=== PATIENT | male | born 1955 | race Caucasian/White ===

== ENCOUNTER 2018-08-25 10:12 | Emergency (ER) | payer BC, SELFPAY ==
[2018-08-25] VITALS (33 sets, daily range): BP systolic 124–175; BP diastolic 72–88; PULSE 62–85; RESP 0–24; TEMP 36.7; O2SAT 82–99
--- NOTE | 2018-08-25 10:17 | NUR.NOTE ---
pt developed nausea, vomiting, and dizziness at approximately 40 min ago
--- NOTE | 2018-08-25 10:34 | DI.CT_ITS ---
SYMPTOMS/DIAGNOSIS: DIZZY, ON COUMADIN NONCONTRAST HEAD CT: There are no prior comparison exams. No intracranial hemorrhage, mass or infarct is seen. The ventricles are normal in size. The orbits are unremarkable. There is mucous retention in the left maxillary sinuses and some mucous thickening of a few ethmoid sinuses as well as in the nasal cavity. IMPRESSION: Sinus disease. No acute intracranial abnormality.
[2018-08-25 10:54] LABS: Abs Immature Grans 0.01 k/cumm (0.0-0.09); Absolute Basophil Count 0.01 k/cumm (0.0-0.2); Absolute Eosinophil Count 0.12 k/cumm (0.0-0.7); Absolute Monocyte Count 0.54 k/cumm (0.11-0.7); Absolute Neutrophil Count 3.56 k/cumm (1.2-6.7); Basophils % 0.2; Eosinophils % 2.1; HCT 42.3 % (40.0-50.0); HGB 13.9 g/dL (13.5-17.5); Immature Grans % 0.2; Lymphocytes % 24.8; Mean Corp. HGB Concentration 32.9 g/dL (32.0-36.0); Mean Corpuscular Hemoglobin 28.3 pg (27.0-33.0); Mean Corpuscular Volume 86.2 fL (80-95); Mean Platelet Volume 9.5 fL (8.0-11.0); Monocytes % 9.6; Neutrophils % 63.1; Platelet Count 310 x1000/uL (130-400); RBC 4.91 m/cumm (4.50-6.00); RBC Distribution Width 14.3 % (11.8-14.1); White Blood Cell Count 5.64 k/cumm (4.4-10.8)
--- NOTE | 2018-08-25 10:54 | W.ED.GENAD ---
Discharge Plan Disposition Patient Disposition: HOME Condition: Good Discharge Details Chief Complaint: Nausea/Vomit/Diar Clinical Impression: Peripheral vertigo Reason For Visit: GIOVANI Primary Care Provider: Shala,Local ED Provider: Favio Becker Home Meds and New Rx's Prescriptions: New meclizine 25 mg tablet 25 mg PO TID Qty: 20 RF: 0 No Action montelukast 10 mg Tablet 10 mg PO QPM RF: 0 atorvastatin [Lipitor] 80 mg Tablet 80 mg PO DAILY RF: 0 warfarin 7.5 mg Tablet 7.5 mg PO DAILY RF: 0 lisinopril 20 mg Tablet 20 mg PO DAILY RF: 0 aspirin [Aspir-81] 81 mg Tablet,Delayed Release (Dr/Ec) 81 mg PO DAILY RF: 0 glyburide-metformin 5-500 mg Tablet 1 tab PO BID RF: 0 amoxicillin-pot clavulanate 875-125 mg Tablet 1 tab PO BID RF: 0 bupropion HCl 300 mg Tablet Extended Release 24 Hr 300 mg PO QAM RF: 0 Mydayis 25 mg Capsule, Er Triphasic 24 Hr 25 mg PO DAILY RF: 0 Discharge Instructions Instructions: Vertigo (ED) Additional Instructions: Please take the meclizine as directed. If you notice any worsening of your symptoms, or any new symptoms such as vomiting, diarrhea, fever, chills, shortness of breath, chest pain, numbness, weakness, or fainting , please return immediately to the emergency department for reevaluation. Please follow up with your primary care provider as soon as possible for reassessment and reevaluation. As always, it was a pleasure participating in your medical care today. Medical Decision Making This is a pleasant 63-year-old male with a past medical history of vertigo, DVTs on Coumadin, and a recent URI for which she is taking Augmentin, who presents for sudden onset dizziness, nystagmus, nausea and vomiting. Patient states that his symptoms are similar to his previous episodes of vertigo. Physical exam demonstrates no focal neurologic deficits, no history of trauma while on the Coumadin, no vertical nystagmus. Hence exam suggest a peripheral etiology. In conjunction with the patient's recent upper respiratory infection I feel that this correlates well with peripheral vertigo most likely from mild labyrinthitis. Because of the patient's history of Coumadin use so we will get a CT scan to acutely rule out any significant bleed which I do feels very unlikely with no neurologic deficits. We will rehydrate, control the patient's nausea and dizziness 2:[address] scan has returned negative for any acute process bleed or stroke. Serial EKGs are benign and consistent with prior EKGs from his outside facilities. Laboratory workup is benign. Serial troponins are stable and within normal limits. Patient's clinical exam is notably improved and he demonstrates a continued normal neurologic exam. Dizziness is resolved and he has been able to tolerate p.o. very well. He continues to demonstrate a nontender normal abdominal exam with no component of surgical concern. I feel his signs and symptoms most likely secondary to peripheral vertigo, and potentially labyrinthitis with his associated upper respiratory infection. I recommend that he continues taking the antibiotic for sinusitis. We discussed red flags which to return, the importance of home meclizine, and the importance of close follow-up. I have extensively reviewed the treatment plan and discharge instructions with the patient. I have addressed all patient concerns at this time. The patient was made aware of what symptoms to monitor for that would warrant a return to the emergency department. Discussed the plan with the patient, they demonstrate verbal understanding and agreement with our assessment and plan at this time. EKG 10: 16 Rate 68, sinus rhythm, intervals normal, 1 mm of J-point elevation in V1 and V2. No ST depressions, no Q waves. No T wave inversions. Findings consistent with prior EKG from outpatient facility on 06/14/18 EKG 14: 22 Rate 65, intervals normal, sinus rhythm, no T wave inversions. Minimal J-point 1 mm elevation in V1 and V2. No Q waves. No change from prior EKG earlier today. Review of previous EKGs from patient's outside medical facility from 06/14/18 demonstrate consistent findings in the anterior leads. Which is consistent with his previous EKGs in the past. No other acute changes. NONCONTRAST HEAD CT: There are no prior comparison exams. No intracranial hemorrhage, mass or infarct is seen. The ventricles are normal in size. The orbits are unremarkable. There is mucous retention in the left maxillary sinuses and some mucous thickening of a few ethmoid sinuses as well as in the nasal cavity. IMPRESSION: Sinus disease. No acute intracranial abnormality. HPI General Date/Time Provider Initiated Documentation: 08/25/18 10:34. 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 Symptoms are made worse with movement of the head, opening his eyes, and looking around. Symptoms are improved by nothing. signs and symptoms are consistent with his previous episodes of vertigo in the past. He denies any headache, chest pain or abdominal pain. Does admit to nausea. He denies any significant vision changes. He denies missing any regular medications aside for the ones he did vomit this morning. He has no other complaints at this time. No other modifying factors. Of note the patient is a relatively poor historian Related Data Home Medications Medication Instructions Recorded Confirmed amoxicillin-pot clavulanate 1 tab PO BID 08/25/18 08/25/18 aspirin [Aspir-81] 81 mg PO DAILY 08/25/18 08/25/18 atorvastatin [Lipitor] 80 mg PO DAILY 08/25/18 08/25/18 bupropion HCl 300 mg PO QAM 08/25/18 08/25/18 dextroamphetamine-amphetamine 25 mg PO DAILY 08/25/18 08/25/18 [Mydayis] glyburide-metformin 1 tab PO BID 08/25/18 08/25/18 lisinopril 20 mg PO DAILY 08/25/18 08/25/18 meclizine 25 mg PO TID #20 tab 08/25/18 montelukast 10 mg PO QPM 08/25/18 08/25/18 warfarin 7.5 mg PO DAILY 08/25/18 08/25/18 Previous Rx's Medication Instructions Recorded meclizine 25 mg PO TID #20 tab 08/25/18 Allergies Allergy/AdvReac Type Severity Reaction Status Date / Time shellfish derived Allergy Mild Unverified 08/25/18 10:20 General Stated Complaint: Nausea/Vomit/Diar BRITNEY: 3 Review of Systems Review of Systems All systems reviewed & are unremarkable except as noted in HPI and below Exam Narrative Exam Narrative: 1.Const: Well-nourished, Well-developed, appearing stated age 2.Eyes: PERRL, no conjunctival injection, and symmetrical lids. 3.ENT: Atraumatic external nose and ears. Moist MM. Neck: Symmetric, trachea midline, No thyromegaly. 4.CVS: +S1/S2, notable grade 2 murmur auscultated loudest at the third left intercostal space. Peripheral pulses 2+ and equal in all extremities. Brisk capillary refill in all extremities. 5.RESP: Unlabored respiratory effort. Clear to auscultation bilaterally. No wheezes rales or rhonchi 6.GI: Soft, Nontender/Nondistended, No hepatosplenomegaly. No guarding or rebound. 7.MSK: Normocephalic/Atraumatic, Extremities w/o deformity or ttp No cyanosis or clubbing, Normal movement of all extremities 8.Skin: Warm, Dry. No rashes or lesions. 9.Neuro: elementary librarian II-XII grossly intact. Sensation grossly intact, no focal neurologic deficits. All 6 cardinal planes of vision are fully intact. No evidence of rotatory or vertical nystagmus. The patient demonstrated a normal [id number], good dexterity. There was no evidence of dysdiadochokinesia. Patient was able to ambulate without difficulty. There was no wide-based gait. Romberg, and [id number] are both normal on testing. Sensation was intact bilaterally as well as muscle strength bilaterally for all extremities. Patient was able to verbalize butter cup with no slurring, or miss pronunciation. Cerebellar function testing is normal. The patient demonstrates a normal hints exam with no findings concerning for a central event. No vertical nystagmus. Severe horizontal nystagmus. The head impulse test is negative for any significant central abnormality but does show notable positivity for peripheral etiology. Normal test of skew. No suggestion of a central cerebellar event. 10.Psych: (AAO) x3. Appropriate mood and affect Course Vital Signs Temperature 36.7 C 08/25/18 10:18 Pulse 70 08/25/18 10:18 Respiratory Rate 15 08/25/18 10:18 Blood Pressure 175/75 H 08/25/18 10:18 Pulse Oximetry 99 08/25/18 10:18 Temperature 36.7 C 08/25/18 10:18 Temperature Source Skin 08/25/18 10:18 Pulse 70 08/25/18 10:18 Respiratory Rate 15 08/25/18 10:18 Blood Pressure 175/75 H 08/25/18 10:18 Blood Pressure Position Sitting 08/25/18 10:18 Pulse Oximetry 99 08/25/18 10:18 Oxygen Delivery Method Room Air 08/25/18 10:18 Oxygen Flow Rate 0 08/25/18 10:18 Pain Level 0 08/25/18 10:18
[2018-08-25] MEDS: Meclizine 25 MG TAB PO ×2 (11:07→11:59)
[2018-08-25] MEDS: Metoclopramide 10 MG/2 ML VIAL IVP (11:07)
[2018-08-25] MEDS: Normal Saline 1,000 ML 1000 ML IV (11:08)
[2018-08-25 11:10] LABS: ALT 35 U/L (12-78); AST 21 U/L (15-37); Albumin 3.6 g/dL (3.4-5.0); Alkaline Phosphatase 71 U/L (46-116); Anion Gap 9.2 mmol/L (3-11); BUN 19 mg/dL (7-18); Bilirubin, Total 0.4 mg/dL (0.2-1.0); CO2 28.8 mmol/L (21.0-32.0); CREATININE 0.71 mg/dL (0.70-1.30); Calcium 8.8 mg/dL (8.5-10.1); Chloride 98 mmol/L (98-107); Glucose 276 mg/dL (70-100); Potassium 4.3 mmol/L (3.5-5.1); Sodium 136 mmol/L (136-145); Total Protein 7.2 g/dL (6.4-8.2); Troponin I 0.03 ng/mL (0.00-0.06)
[2018-08-25 11:11] LABS: INR 2.5 (0.9-1.1); PTT Activated 30.3 sec (21.0-31.4); Prothrombin Time 25.4 sec (9.3-11.0)
[2018-08-25 14:34] LABS: Troponin I 0.03 ng/mL (0.00-0.06)
--- NOTE | 2018-08-25 14:44 | PDOC.ERCMPRO ---
Care Management Progress Note 08/25-Ady presented to the ED with Vertigo. 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 This CM met with Ady. He can not drive today. Ady's employer has secured him a room at the [facility]. There is no restaurant close to the [facility] so this CM called the kitchen and they have prepared him a meal for tonight and breakfast tomorrow. This CM has called [facility] [email or web address] ([employer] will bill [facility] for the ride) and spoke with Jass. [employer] will come now to transport. Ady will need a ride tomorrow or Tuesday to get back to the hospital to pick and shovel man his truck. This CM spoke to Jass about this and Jass asked that this CM give Ady his name and number and to call him back to set up. Information given to Ady. Dr. Becker and AMADO Cardona aware of the above.
--- NOTE | 2018-08-25 14:56 | CMPROGNOTE_ITS ---
Care Management Progress Note 08/25-Ady presented to the ED with Vertigo. 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 This CM met with Ady. He can not drive today. Ady's employer has secured him a room at the [facility]. There is no restaurant close to the [facility] so this CM called the kitchen and they have prepared him a meal for tonight and breakfast tomorrow. This CM has called [facility] [employer] ([facility] [employer] will bill [facility] for the ride) and spoke with Jass. [employer] will come now to transport. Ady will need a ride tomorrow or Tuesday to get back to the hospital to pecan picker his truck. This CM spoke to Jass about this and Jass asked that this CM give Ady his name and n umber and to call him back to set up. Information given to Ady. Dr. Becker and AMADO Cardona aware of the above.
== END 2018-08-25 15:15 | disposition home or self-care (01) ==
PROVIDERS: Emergency Provider Student in an Organized Health Care Education/Training Program
DX: H81.399 Other peripheral vertigo, unspecified ear (principal); Z79.01 Long term (current) use of anticoagulants
CPT/HCPCS: 36415; 80053; 93005; 96361; 96374; 96375; 99284; 70450; 84484; 85025; 85610; 85730; 93010; J2765